=== PATIENT | female | born 1955 | race Caucasian/White ===

== ENCOUNTER 2016-11-19 21:08 | Inpatient (IN) | payer BC ==
[2016-11-19 21:08] VITALS: BMI 38.4
[2016-11-19 22:30] LABS: SQUAMOUS EPITHIAL 9 /hpf (0-5); URINE BACTERIA RARE (<OCC); URINE BILIRUBIN NEGATIVE (NEGATIVE); URINE BLOOD NEGATIVE (NEGATIVE); URINE CLARITY Hazy (Clear); URINE COLOR Yellow (YELLOW); URINE GLUCOSE (UA) NORMAL (Normal); URINE LEUKOCYTE ESTERASE 1+ Leu/uL (Negative); URINE NITRATE NEGATIVE (NEGATIVE); URINE PROTEIN NEGATIVE (NEGATIVE); URINE UROBILINOGEN NORMAL mg/dL (0.2-1.0)
[2016-11-19] MEDS ORDERED: Sodium Chloride 0.9% 1,000 ML IV ONE (23:06)
[2016-11-20 00:19] LABS: BASO # 0.1 K/uL (0.0-0.2); BASO % 0.9 % (0.0-2.0); EOS % 0.1 % (0.0-4.0); HEMOGLOBIN 13.1 g/dL (11.0-16.0); LYMPH # 2.5 K/uL (1.0-4.3); LYMPH % 33.2 % (20.0-40.0); MEAN CORPUSCULAR HEMOGLOBIN 24.7 pg (27.0-31.0); MEAN CORPUSCULAR HGB CONC 31.2 g/dL (33.0-37.0); MEAN PLATELET VOLUME 9.2 fL (7.2-11.7); MONO # 0.5 K/uL (0.0-0.8); MONO % 5.9 % (0.0-10.0); NEUT # 4.6 K/uL (1.8-7.0); NEUT % 59.9 % (50.0-75.0); RBC 5.29 Mil/uL (3.80-5.20); RED CELL DISTRIBUTION WIDTH 18.4 % (11.5-14.5); WHITE BLOOD COUNT 7.7 K/uL (4.8-10.8)
[2016-11-20 00:21] LABS: MEAN CELL VOLUME 79.3 fL (81.0-99.0)
[2016-11-20 00:29] LABS: ALT/SGPT 15 U/L (9-52); AST/SGOT 17 U/L (14-36); BLOOD UREA NITROGEN 17 mg/dL (7-17); GFR AFRICAN-AMERICAN > 60; GFR NON-AFRICAN AMERICAN > 60
[2016-11-20 00:30] LABS: CALCIUM 8.6 mg/dl (8.6-10.4); LIPASE 110 U/L (23-300)
[2016-11-20] MEDS ORDERED: Sodium Chloride 0.9% 1,000 ML ONE (00:32)
[2016-11-20] MEDS ORDERED: Morphine 4 MG/ML VIAL ONE (00:32)
--- NOTE | 2016-11-20 01:15 | C.PDOC ---
History Of Present Illness A 61 y/o F c/o crampy abdominal pain for a week. Pt was referred by Dr. Ruiz. Spoke with Dr. Ruiz at 23:00 who said "please evaluate Pt". Pt denies fever, chills, nausea, vomiting, diarrhea, vaginal bleeding, discharge, dysuria, hematuria, or any other complaints. Time Seen by Provider: 11/19/16 22:55 Chief Complaint (Nursing): Abdominal Pain History Per: Patient History/Exam Limitations: no limitations Onset/Duration Of Symptoms: Days Current Symptoms Are (Timing): Still Present Severity: Mild Location Of Pain/Discomfort: Diffuse Radiation Of Pain To:: None Quality Of Discomfort: Cramping Associated Symptoms: denies: Fever, Chills, Nausea, Vomiting Recent travel outside of the [place]: No Additional History Per: Patient Abnormal Vaginal Bleeding: No Past Medical History Reviewed: Historical Data, Nursing Documentation, Vital Signs Vital Signs: Last Vital Signs Temp 97.8 F 11/20/16 02:57 Pulse 80 11/20/16 02:57 Resp 16 11/20/16 02:57 BP 156/88 H 11/20/16 02:57 Pulse Ox 98 11/20/16 02:57 - Medical History PMH: Arthritis (CERVICAL AND LBP CHRONIC), Asthma, Diabetes, HTN, Hypercholesterolemia, Hypothyroidism, Kidney Stones Denies: Atrial Fibrillation, Cardia Arrhythmia, CHF, Chronic Kidney Disease Surgical History: Cholecystectomy - [facility] Procedures ESOPHAGOGASTRODUODENOSCOPY [EGD] W/CLOSED BIOPSY (03/31/13) Family History: States: Unknown Family Hx - Social History Hx Tobacco Use: No Hx Alcohol Use: Yes Hx Substance Use: No - Immunization History Hx Tetanus Toxoid Vaccination: No Hx Influenza Vaccination: No Hx Pneumococcal Vaccination: No Review Of Systems Except As Marked, All Systems Reviewed And Found Negative. Constitutional: Negative for: Fever, Chills Gastrointestinal: Positive for: Abdominal Pain. Negative for: Nausea, Vomiting , Diarrhea Genitourinary: Negative for: Dysuria, Hematuria, Vaginal Discharge, Vaginal Bleeding Physical Exam - Physical Exam Appears: Non-toxic, No Acute Distress Skin: Warm, Dry Head: Atraumatic, Normacephalic Eye(s): bilateral: Normal Inspection Cardiovascular: Rhythm Regular, No Murmur Respiratory: Normal Breath Sounds, No Accessory Muscle Use, No Rales, No Rhonchi , No Wheezing Gastrointestinal/Abdominal: Soft, Tenderness (vague tenderness), No Guarding, No Rebound, Other (Obese abdomen. Large pannus) Neurological/Psych: Oriented x3, Normal Speech, Normal Cognition ED Course And Treatment - Laboratory Results Result Diagrams: 11/20/16 00:15 11/20/16 00:15 Lab Interpretation: Normal (trop neg.) ECG: Interpreted By Me ECG Rhythm: Sinus Rhythm ECG Interpretation: Normal Rate From EC O2 Sat by Pulse Oximetry: 97 (RA) Pulse Ox Interpretation: Normal - Radiology CXR: Interpreted by Me CXR Interpretation: Yes: No Acute Disease - Other Rad abd x 2 X-Ray: Interpreted by Me (+FOS) Reevaluation Time: 01:13 Reassessment Condition: Improved Medical Decision Making Medical Decision Making: Impression: Plans: -EKG -XRAY abdomen -Pepcid -Morphine -IV fluids constipation and NOT diarrhea. LOW susp of colitis/C-diff and normal WBC's and colon with large stool. laxative prescribed. outpatient f/u w Dr. Ruiz 0300: pt wants to remain for inpt eval for belly pain despite reassurances, ok with Dr. Ruiz 0330: d/w Dr. Marx, ok to med/surg Obs Disposition Doctor Will See Patient In The: Hospital Counseled Patient/Family Regarding: Studies Performed, Diagnosis - Disposition Referrals: Lucille Ruiz [Primary Care Provider] - Disposition: HOSPITALIZED Disposition Time: 03:20 Condition: GOOD Additional Instructions: drink bottle of Mag Citrate (laxative) now re-evaluate your abdominal discomfort after using the bathroom 2-3 times. Follow-up with Dr. Ruiz as needed. Prescriptions: Magnesium Citrate [[facility] Magnesium Citrate] 300 ml PO ONCE PRN #1 bottle PRN Reason: Constipation Instructions: Constipation (ED) - Clinical Impression Clinical Impression: Abdominal pain - Scribe Statement The provider has reviewed the documentation as recorded by the Scribe Yue meléndez All medical record entries made by the Scribe were at my direction and personally dictated by me. I have reviewed the chart and agree that the record accurately reflects my personal performance of the history, physical exam, medical decision making, and the department course for this patient. I have also personally directed, reviewed, and agree with the discharge instructions and disposition.
[2016-11-20] MEDS ORDERED: Oxycodone/Acetaminophen 5/325 mg Tab PO STA (03:16)
--- NOTE | 2016-11-20 10:56 | RAD ---
Abdomen five views History: Abdominal pain. Comparison: None available. Findings: Mild venous congestion. Patchy left basilar increased markings. Tortuous aorta. Mild cardiomegaly. Degenerative changes in the spine and shoulders. Surgical clips in the right upper abdomen. Moderate fecal retention in the colon. No evidence of gross obstruction. Degenerative changes in the spine and hips. Impression: Moderate fecal retention in the colon.
[2016-11-20] MEDS: Levothyroxine 112 MCG TAB PO SCH (10:59)
[2016-11-20] MEDS: (Novolog) Insulin Aspart, Recombinant 100 u/ml 10 ml vial SC SCH ×3 (11:58→21:14)
[2016-11-20] MEDS ORDERED: Bisacodyl 5mg EC Tab PO ONE (13:00)
[2016-11-20] MEDS: Belladonna-Phenobarbital PO SCH ×2 (14:51→17:28)
[2016-11-20] MEDS ORDERED: Iohexol 240 (50 ml) PO ONE (16:00)
[2016-11-20] MEDS ORDERED: Iohexol 350mg/ml 100 ML ONE (16:19)
--- NOTE | 2016-11-20 18:34 | CP.PCM.CON ---
History of Present Illness - History of Present Illness History of Present Illness: DIZZINESS 4-5 HRS DENIES HEADACHE, VISUAL, BULBAR AND SENSORY MOTOR DYSFUNCTION NO SIMILAR PROBLE,M Past Patient History - Infectious Disease Hx of Infectious Diseases: None - Past Medical History & Family History Past Medical History?: Yes - Past Social History Smoking Status: Never Smoked - CARDIAC Hx Atrial Fibrillation: No Hx Cardia Arrhythmia: No Hx Congestive Heart Failure: No Hx Hypertension: Yes - PULMONARY Hx Asthma: Yes - NEUROLOGICAL Hx Neurological Disorder: No Other/Comment: AAOX3 - HEENT Hx HEENT Problems: No - RENAL Hx Chronic Kidney Disease: No Hx Kidney Stones: Yes - ENDOCRINE/METABOLIC Hx Diabetes Mellitus Type 2: Yes Hx Hypothyroidism: Yes - HEMATOLOGICAL/ONCOLOGICAL Hx Blood Disorders: No - INTEGUMENTARY Hx Dermatological Problems: No - MUSCULOSKELETAL/RHEUMATOLOGICAL Hx Arthritis: Yes (CERVICAL AND LBP CHRONIC) Hx Falls: No - GASTROINTESTINAL Hx Gastrointestinal Disorders: No Hx Diarrhea: Yes Other/Comment: "herina repair x2" - GENITOURINARY/GYNECOLOGICAL Hx Genitourinary Disorders: No - PSYCHIATRIC Hx Substance Use: No - SURGICAL HISTORY Hx Cholecystectomy: Yes Hx Hysterectomy: Yes (11 yrs ago) - ANESTHESIA Hx Anesthesia: Yes Hx Anesthesia Reactions: No Hx Malignant Hyperthermia: No Meds Home Medications: Home Medication List Medication Instructions Recorded Confirmed Type Magnesium Citrate [[facility] 300 ml PO ONCE PRN #1 bottle 11/20/16 Rx Pharmacy Magnesium Citrate] Allergies/Adverse Reactions: Allergies Allergy/AdvReac Type Severity Reaction Status Date / Time No Known Allergies Allergy Verified 03/08/16 07:43 - Medications Medications: Current Medications Amlodipine Besylate (Norvasc) 10 mg PO DAILY [facility] Last Admin: 11/20/16 10:58 Dose: 10 mg Belladonna/Phenobarbital () 1 tab PO TID [facility] Last Admin: 11/20/16 17:28 Dose: 1 tab Bisacodyl (Dulcolax) 10 mg PO ONCE ONE Stop: 11/21/16 17:01 Clonidine HCl (Catapres-Tts3 0.3 Mg/24 Hr) 1 patch TD QWK [facility] Last Admin: 11/20/16 10:58 Dose: 1 patch Gabapentin (Neurontin) 300 mg PO DAILY [facility] Last Admin: 11/20/16 10:58 Dose: 300 mg Heparin Sodium (Porcine) (Heparin) 5,000 units SC Q12 [facility] Last Admin: 11/20/16 10:59 Dose: 5,000 units Hydralazine HCl (Apresoline) 100 mg PO DAILY [facility] Last Admin: 11/20/16 10:58 Dose: 100 mg Insulin Aspart (Novolog) 0 unit SC ACHS [facility] PRN Reason: Protocol Last Admin: 11/20/16 17:29 Dose: Not Given Levothyroxine Sodium (Synthroid) 112 mcg PO DAILY@0630 [facility] Last Admin: 11/20/16 10:59 Dose: 112 mcg Metformin HCl (Glucophage Xr) 500 mg PO DAILY@0800 [facility] Nebivolol (Bystolic) 5 mg PO DAILY [facility] Last Admin: 11/20/16 10:59 Dose: 5 mg Polyethylene Glycol/Electrolytes (Golytely) 4,000 ml PO ONCE ONE Stop: 11/21/16 09:01 Physical Exam - Head Exam Head Exam: ATRAUMATIC, NORMAL INSPECTION - Eye Exam Eye Exam: Normal appearance - Respiratory Exam Respiratory Exam: NORMAL BREATHING PATTERN - Cardiovascular Exam Cardiovascular Exam: REGULAR RHYTHM - Expanded Neurological Exam Expanded Speech: Anomia, Expressive Aphasia, Fluid Speech, Garbled Speech, Reseptive Aphasia, Slurred Speech, Stutter, Total Aphasia Cranial nerves: EOM's Intact: Normal, Facial Palsey w/Forehead Movement: Normal , Facial Palsey w/o Forehead Movement: Normal, Facial Sensation: Normal, Gag Reflex: Normal, Nystagmus: Normal, Tongue Deviation: Normal Ataxia: No Cerebellar Function: Finger to Nose: Normal, Heel to Matson: Normal, Romberg: Normal Upper motor neuron: Babinski Sign: Normal Sensory exam: Lower Extremity Light Touch: Abnormal Left, Abnormal Right, Lower Extremity Pin Prick: Abnormal Left, Abnormal Right, Lower Extremity Temperature : Abnormal Left, Abnormal Right (NEUROPATHY ) Neuro motor strength exam: Left Upper Extremity: 5, Right Upper Extremity: 5, Left Lower Extremity: 5, Right Lower Extremity: 5 DTR: Achilles Tendon Left: 0, Achilles Tendon Right: 0, Bicep Left: 0, Bicep Right: 0, Brachioradialis Left: 0, Brachioradialis Right: 0, Patellar Left: 0, Patellar Right: 0, Tricep Left: 0 Results - Vital Signs Recent Vital Signs: Last Vital Signs Temp 98.4 F 11/20/16 15:10 Pulse 60 11/20/16 15:10 Resp 20 11/20/16 15:10 BP 113/64 11/20/16 15:10 Pulse Ox 96 11/20/16 15:10 - Labs Result Diagrams: 11/20/16 00:15 11/20/16 00:15 Labs: Laboratory Results - last 24 hr 11/20/16 11/20/16 11/20/16 16:44 17:06 17:06 POC Glucose (mg/dL) 138 H Alpha Fetoprotein 2.5 Carcinoembryonic Ag < 0.3 CA 19-9 Antigen 2.9 CA 125 Antigen < 5.5 Assessment & Plan (1) Vertebro-basilar artery syndrome Status: Acute (2) Vertebrobasilar insufficiency Status: Acute - Assessment and Plan (Free Text) Assessment: NO LONG TRACT SIGNS NEUROPATHY OLD PLAN MRI CAROTID PLAVIX IF MRI IS NEGATIVE MEAN TIME MECKLIZINE POLY PHARMACY AVOID NARCOTIC - Date & Time Date: 11/20/16 Time: 18:37
[2016-11-20 19:12] LABS: FREE T4 1.5 ng/dL (0.78-2.19)
--- NOTE | 2016-11-20 19:32 | CT ---
EXAM: CT Abdomen and Pelvis With Intravenous Contrast CLINICAL HISTORY: 61 years old, female; Pain; Abdominal pain; Flank; Right lower quadrant (rlq); Additional info: Change of b. Movements TECHNIQUE: Axial computed tomography images of the abdomen and pelvis with intravenous contrast. This CT exam was performed using one or more of the following dose reduction techniques: automated exposure control, adjustment of the mA and/or kV according to patient size, and/or use of iterative reconstruction technique. Coronal and sagittal reformatted images were created and reviewed. CONTRAST: 100 mL of omnipaque 350 administered intravenously. EXAM DATE/TIME: Exam ordered 11/20/2016 4:00 PM COMPARISON: No relevant prior studies available. FINDINGS: Lower thorax: Scattered areas of groundglass density are noted in the right middle lobe. Coarse reticular densities are seen in the right middle lobe in the left lower lobe suggesting discoid atelectasis or scar. ABDOMEN: Liver: A 1 cm low density lesion is noted in the anterior superior segment of the right lobe of the liver with a density measurement of 20 1H. There is mild central intrahepatic ductal dilatation. The liver measures 20 cm in craniocaudal span. Gallbladder and bile ducts: The gallbladder is absent. The common bile duct measures approximately 9 mm. Pancreas: Unremarkable. No mass. No ductal dilation. Spleen: The spleen measures 13.6 cm in craniocaudal span. Adrenals: Unremarkable. No mass. Kidneys and ureters: There is a 7 mm low density lesion arising from the lower pole left kidney with a density measurement of 7H. No hydronephrosis. Stomach and bowel: There are scattered colonic diverticula. There is an old haziness of the fat surrounding the descending colon in the region of several sigmoid colonic diverticula. No obstruction. No mucosal thickening. Appendix: The appendix is not seen as a separate structure. PELVIS: Bladder: Unremarkable. No mass. Reproductive: Unremarkable as visualized. ABDOMEN and PELVIS: Intraperitoneal space: Unremarkable. No free air. No significant fluid collection. Bones/joints: There is an apparent dextroscoliosis of the thoracolumbar spine with mild secondary degenerative changes. No acute fracture. No dislocation. Soft tissues: There is a small midline supraumbilical abdominal hernia containing fat. A second defect is noted in the lower anterior abdominal wall at the level of the rectus abdominous muscle where there is a small herniation of fat just to the right of midline. There is a small hiatal hernia Vasculature: Unremarkable. No abdominal aortic aneurysm. Lymph nodes: Unremarkable. No enlarged lymph nodes. Other findings: No inflammatory changes are seen in the right lower quadrant. IMPRESSION: 1. 2 small anterior abdominal hernias containing fat 2. Scattered colonic diverticula. Minimal hazy changes noted within the pericolonic fat at the level of the descending colon could represent a very mild case of diverticulitis. 3. Hepatosplenomegaly. 4. Left renal cyst. 5.Liver cyst. 6. Small hiatal hernia. 7. Scattered areas of groundglass density in the right middle lobe could represent pneumonitis Images were attached to this report and are available at [email or web address]
--- NOTE | 2016-11-20 23:42 | CP.PCM.HP ---
History of Present Illness - History of Present Illness History of Present Illness: 61 Y/O WITH H/O HTN AND DM, AND SHE HAS ABDOMINAL PAIN, NAUSEA, VOMITING, NO FEVER, COUGH DRY, NO CHEST PAIN, FEELS WEAK, NO CHEST PAIN, NO DIZZINESS Present on Admission - Present on Admission Any Indicators Present on Admission: No History of DVT/PE: No History of Uncontrolled Diabetes: No Urinary Catheter: No Decubitus Ulcer Present: No Review of Systems - Constitutional Constitutional: Anorexia, Chills, Weight Loss - EENT Eyes: Itchy Eyes - Breasts Breasts: As Per HPI - Respiratory Respiratory: Cough - Gastrointestinal Gastrointestinal: Abdominal Pain, Bloating, Cramping, Diarrhea, Excessive Flatus - Genitourinary Genitourinary: Other - Integumentary Integumentary: absent: Other - Neurological Neurological: absent: Abnormal Gait, Syncope - Endocrine Endocrine: absent: Increase in Ring/Shoe/Hat Size, Polyphagia Past Patient History - Infectious Disease Hx of Infectious Diseases: None - Past Medical History & Family History Past Medical History?: Yes - Past Social History Smoking Status: Never Smoked - CARDIAC Hx Atrial Fibrillation: No Hx Cardia Arrhythmia: No Hx Congestive Heart Failure: No Hx Hypertension: Yes - PULMONARY Hx Asthma: Yes - NEUROLOGICAL Hx Neurological Disorder: No Other/Comment: AAOX3 - HEENT Hx HEENT Problems: No - RENAL Hx Chronic Kidney Disease: No Hx Kidney Stones: Yes - ENDOCRINE/METABOLIC Hx Diabetes Mellitus Type 2: Yes Hx Hypothyroidism: Yes - HEMATOLOGICAL/ONCOLOGICAL Hx Blood Disorders: No - INTEGUMENTARY Hx Dermatological Problems: No - MUSCULOSKELETAL/RHEUMATOLOGICAL Hx Arthritis: Yes (CERVICAL AND LBP CHRONIC) Hx Falls: No - GASTROINTESTINAL Hx Gastrointestinal Disorders: No Hx Diarrhea: Yes Other/Comment: "herina repair x2" - GENITOURINARY/GYNECOLOGICAL Hx Genitourinary Disorders: No - PSYCHIATRIC Hx Substance Use: No - SURGICAL HISTORY Hx Cholecystectomy: Yes Hx Hysterectomy: Yes (11 yrs ago) - ANESTHESIA Hx Anesthesia: Yes Hx Anesthesia Reactions: No Hx Malignant Hyperthermia: No Meds Home Medications: Home Medication List Medication Instructions Recorded Confirmed Type Magnesium Citrate [[facility] 300 ml PO ONCE PRN #1 bottle 11/20/16 Rx Pharmacy Magnesium Citrate] Allergies/Adverse Reactions: Allergies Allergy/AdvReac Type Severity Reaction Status Date / Time No Known Allergies Allergy Verified 03/08/16 07:43 Physical Exam - Constitutional Appears: Non-toxic, No Acute Distress - Head Exam Head Exam: ATRAUMATIC, NORMAL INSPECTION, NORMOCEPHALIC - Eye Exam Eye Exam: EOMI, Normal appearance, PERRL Pupil Exam: NORMAL ACCOMODATION - Cardiovascular Exam Cardiovascular Exam: REGULAR RHYTHM, +S1, +S2 - GI/Abdominal Exam GI & Abdominal Exam: Distended, Hyperactive Bowel Sounds - Extremities Exam Extremities exam: Positive for: normal inspection - Back Exam Back exam: NORMAL INSPECTION - Neurological Exam Neurological exam: CN II-XII Intact, Normal Gait, Oriented x3, Reflexes Normal - Skin Skin Exam: Dry, Intact, Normal Color, Warm Results - Vital Signs Recent Vital Signs: Last Vital Signs Temp 98.4 F 11/20/16 15:10 Pulse 60 11/20/16 15:10 Resp 20 11/20/16 15:10 BP 113/64 11/20/16 15:10 Pulse Ox 96 11/20/16 15:10 - Labs Result Diagrams: 11/20/16 00:15 11/20/16 00:15 Labs: Laboratory Results - last 24 hr 11/20/16 11/20/16 11/20/16 16:44 17:06 17:06 POC Glucose (mg/dL) 138 H Hemoglobin A1c Alpha Fetoprotein 2.5 Carcinoembryonic Ag < 0.3 CA 19-9 Antigen 2.9 CA 125 Antigen < 5.5 Vitamin B12 Free T4 TSH 3rd Generation 11/20/16 11/20/16 11/20/16 18:41 18:44 18:44 POC Glucose (mg/dL) Hemoglobin A1c 6.0 Alpha Fetoprotein Carcinoembryonic Ag CA 19-9 Antigen CA 125 Antigen Vitamin B12 299 Free T4 1.50 TSH 3rd Generation 1.96 11/20/16 21:18 POC Glucose (mg/dL) 133 H Hemoglobin A1c Alpha Fetoprotein Carcinoembryonic Ag CA 19-9 Antigen CA 125 Antigen Vitamin B12 Free T4 TSH 3rd Generation Assessment & Plan (1) Dehydration Status: Acute (2) Diverticulitis Status: Acute (3) Diabetes Status: Chronic Priority: Medium (4) Hypertension Status: Chronic Priority: Medium
[2016-11-21] MEDS: Levothyroxine 112 MCG TAB PO SCH (05:30)
[2016-11-21] MEDS: (Novolog) Insulin Aspart, Recombinant 100 u/ml 10 ml vial SC SCH ×4 (07:40→21:57)
[2016-11-21] MEDS ORDERED: Peg-Electrolyte Oral Soln 4L (Golytely) PO ONE (09:00)
[2016-11-21] MEDS: Belladonna-Phenobarbital PO SCH ×3 (09:15→17:34)
[2016-11-21] MEDS ORDERED: Azithromycin 500 MG in Sodium Chloride 0.9% 250 ML IVPB STA (12:40)
[2016-11-21] MEDS ORDERED: Bisacodyl 5mg EC Tab PO ONE (17:00)
--- NOTE | 2016-11-21 17:34 | CT ---
PROCEDURE: CT chest HISTORY: mass COMPARISON: Correlation made with chest radiograph dated 11/19/2016 comparison also made with CT scan of the abdomen and pelvis 11/20/2016 which partially image the lung bases. TECHNIQUE: Contiguous axial images were obtained through the chest without intravenous contrast enhancement. Sagittal and coronal reconstructions were performed. Radiation dose (DLP): 540.48 mGy-cm. This CT exam was performed using one or more of the following dose reduction techniques: Automated exposure control, adjustment of the mA and/or kV according to patient size, and/or use of iterative reconstruction technique. FINDINGS: LUNGS: Lung moore are free of focal consolidation however there appears to be some mild atelectasis and or scarring changes in both lung bases including the lingular and middle lobe regions. Mild fibrosis/scarring changes seen in the medial aspect left upper lobe bordering the pleural surface. A follow-up CT scan in 3-6 months could be performed to assess the stability of this somewhat linear/elliptical shaped scarMild venous congestive changes seen on prior chest radiograph less well seen on this exam. There are no obvious parenchymal masses or nodules. . MEDIASTINUM: Heart size is within range of normal. No significant pericardial effusion. The ascending thoracic aorta exhibits fusiform dilatation measuring 3.93 cm in greatest dimension. Ascending and descending thoracic aorta measures approximately 2.65 cm. Pulmonary trunk measures approximately 2.8 cm. No significant mediastinal adenopathy. Evaluation for hilar adenopathy is limited due to the lack of circulating intravenous contrast material. Central airways are midline and patent. No endoluminal lesions seen within the trachea or mainstem bronchi. There is a small hiatal hernia. Slight wall thickening of the distal esophagus could be due to protrusion gastric mucosa. Possibility of esophagitis not excluded. PLEURA: No pleural fluid. No pneumothorax. BONES: Minor multilevel degenerative spondylosis of the thoracic spine. No acute compression fractures no retropulsed fragments. There are no suspicious lytic or blastic lesions identified. UPPER ABDOMEN: Re- demonstrated is a small of nonspecific low-attenuation focus within the superior aspect right lobe liver unchanged from prior exam. This probably represents a small cyst. Please refer to CT scan of the abdomen pelvis for additional findings of hepatosplenomegaly. OTHER FINDINGS: None. IMPRESSION: Minor atelectasis and or scarring both lung bases including the middle lobe and lingular regions. . There are mild fibrosis/scarring changes seen in the medial aspect left upper lobe bordering the pleural surface. . A follow-up CT scan in 3-6 months could be performed to assess the stability of this somewhat linear/elliptical shaped scar. No acute infiltrates or effusions. No obvious parenchymal on lung masses. Mild venous congestion less well seen on this study compared to plain film radiographs of the chest. Mild fusiform dilatation of the ascending thoracic aorta See above discussion for additional incidental findings. Please refer to CT scan abdomen pelvis for additional details regarding abnormal findings of the liver and spleen.
--- NOTE | 2016-11-21 21:47 | CP.PCM.PN ---
Subjective - Date & Time of Evaluation Date of Evaluation: 11/21/16 Time of Evaluation: 20:00 - Subjective Subjective: Pt seen & evalauted, c/o cough, abdominal pain, is on antibiotics per GI, decreased N/V, diarrhea Objective - Vital Signs/Intake and Output Vital Signs (last 24 hours): Temp Pulse Resp BP Pulse Ox 98.1 F 60 20 134/68 98 11/21/16 15:30 11/21/16 15:30 11/21/16 15:30 11/21/16 15:30 11/21/16 15:30 Intake and Output: 11/21/16 11/22/16 18:59 06:59 Intake Total 850 Balance 850 - Medications Medications: Current Medications Amlodipine Besylate (Norvasc) 10 mg PO DAILY [facility] Last Admin: 11/21/16 09:13 Dose: Not Given Belladonna/Phenobarbital () 1 tab PO TID [facility] Last Admin: 11/21/16 17:34 Dose: 1 tab Clonidine HCl (Catapres-Tts3 0.3 Mg/24 Hr) 1 patch TD QWK [facility] Last Admin: 11/20/16 10:58 Dose: 1 patch Gabapentin (Neurontin) 300 mg PO DAILY [facility] Last Admin: 11/21/16 09:15 Dose: 300 mg Heparin Sodium (Porcine) (Heparin) 5,000 units SC Q12 [facility] Last Admin: 11/21/16 21:23 Dose: 5,000 units Hydralazine HCl (Apresoline) 100 mg PO DAILY [facility] Last Admin: 11/21/16 09:12 Dose: Not Given Azithromycin 500 mg/ Sodium (Chloride) 250 mls @ 250 mls/hr IVPB DAILY [facility] Ceftriaxone Sodium 1 gm/ (Sodium Chloride) 100 mls @ 100 mls/hr IVPB DAILY [facility] Last Admin: 11/21/16 15:04 Dose: 100 mls/hr Insulin Aspart (Novolog) 0 unit SC ACHS [facility] PRN Reason: Protocol Last Admin: 11/21/16 17:35 Dose: Not Given Levothyroxine Sodium (Synthroid) 112 mcg PO DAILY@0630 [facility] Last Admin: 11/21/16 05:30 Dose: 112 mcg Metformin HCl (Glucophage Xr) 500 mg PO DAILY@0800 [facility] Last Admin: 11/21/16 09:15 Dose: 500 mg Nebivolol (Bystolic) 5 mg PO DAILY [facility] Last Admin: 11/21/16 09:12 Dose: Not Given - Constitutional Appears: No Acute Distress - Head Exam Head Exam: ATRAUMATIC, NORMAL INSPECTION, NORMOCEPHALIC - Eye Exam Eye Exam: EOMI, Normal appearance, PERRL Pupil Exam: NORMAL ACCOMODATION, PERRL - Respiratory Exam Respiratory Exam: Decreased Breath Sounds, Rales, Rhonchi - Cardiovascular Exam Cardiovascular Exam: REGULAR RHYTHM, +S1, +S2. absent: Murmur - GI/Abdominal Exam GI & Abdominal Exam: Soft, Normal Bowel Sounds. absent: Tenderness Assessment and Plan (1) Dehydration Status: Acute (2) Diverticulitis Status: Acute (3) Diabetes Status: Chronic (4) Hypertension Status: Chronic (5) Atelectasis Status: Acute (6) Colitis Status: Acute
[2016-11-22] MEDS: Levothyroxine 112 MCG TAB PO SCH (08:15)
[2016-11-22] MEDS: (Novolog) Insulin Aspart, Recombinant 100 u/ml 10 ml vial SC SCH ×2 (08:15→13:32)
[2016-11-22 08:54] LABS: INR 1.1; PROTHROMBIN TIME 12.5 SECONDS (9.7-12.2)
[2016-11-22] MEDS ORDERED: Azithromycin 500 MG in Sodium Chloride 0.9% 250 ML IVPB SCH (10:00)
[2016-11-22] MEDS ORDERED: Propofol 10 mg/ml Inj (20 ML) ONE ×2 (10:58→11:32)
[2016-11-22] MEDS ORDERED: Phenylephrine 10 mg/ml Inj ONE (10:58)
[2016-11-22] MEDS: Belladonna-Phenobarbital PO SCH ×2 (11:23→14:32)
[2016-11-22] MEDS ORDERED: Glucagon Recombinant 1 mg Inj ONE (11:30)
[2016-11-22] MEDS ORDERED: metroNIDAZOLE IV 500 mg/100 ml 500 MG/100 ML BAG IVPB STA (11:41)
[2016-11-22] MEDS ORDERED: Belladonna-Phenobarbital PO STA (11:42)
[2016-11-22 12:02] VITALS: O2SAT 98
[2016-11-22 14:26] VITALS: BP 149/83; PULSE 55; RESP 20; TEMP 98
--- NOTE | 2016-11-22 14:44 | CP.PCM.PN ---
Subjective - Date & Time of Evaluation Date of Evaluation: 11/22/16 Time of Evaluation: 14:30 - Subjective Subjective: Pt seen an dexamined today after EGD/colonoscopy denies any dizziness, abdominal pain, N/V/D, tolerating diet , states wish to go home S/P - EGD , and colonoscopy ( see full report for details) Objective - Vital Signs/Intake and Output Vital Signs (last 24 hours): Temp Pulse Resp BP Pulse Ox 98 F 55 L 20 149/83 98 11/22/16 14:26 11/22/16 14:26 11/22/16 14:26 11/22/16 14:26 11/22/16 14:26 Intake and Output: 11/22/16 11/22/16 06:59 18:59 Intake Total 240 300 Balance 240 300 - Medications Medications: Current Medications Amlodipine Besylate (Norvasc) 10 mg PO DAILY [facility] Last Admin: 11/22/16 11:23 Dose: Not Given Belladonna/Phenobarbital () 1 tab PO TID [facility] Last Admin: 11/22/16 14:32 Dose: 1 tab Clonidine HCl (Catapres-Tts3 0.3 Mg/24 Hr) 1 patch TD QWK [facility] Last Admin: 11/20/16 10:58 Dose: 1 patch Gabapentin (Neurontin) 300 mg PO DAILY [facility] Last Admin: 11/22/16 11:23 Dose: Not Given Heparin Sodium (Porcine) (Heparin) 5,000 units SC Q12 [facility] Last Admin: 11/22/16 11:23 Dose: Not Given Hydralazine HCl (Apresoline) 100 mg PO DAILY [facility] Last Admin: 11/22/16 11:22 Dose: Not Given Insulin Aspart (Novolog) 0 unit SC ACHS [facility] PRN Reason: Protocol Last Admin: 11/22/16 13:32 Dose: Not Given Levothyroxine Sodium (Synthroid) 112 mcg PO DAILY@0630 [facility] Last Admin: 11/22/16 08:15 Dose: Not Given Metformin HCl (Glucophage Xr) 500 mg PO DAILY@0800 [facility] Last Admin: 11/22/16 08:15 Dose: Not Given - Labs Labs: PT 12.5 SECONDS (9.7-12.2) H 11/22/16 08:46 INR 1.1 11/22/16 08:46 Assessment and Plan - Assessment and Plan (Free Text) Assessment: 61 yr old female admitted for abdominal pain s/p EGD/ colonoscopy Dr. Arredondo cleared pateint for discharge home today Pt refused MRI , Dr. Almeida cleared patient for discharge home today and f/u out patient in his office D/W Dr. Marx, cleared for discharge home today and f/u with PMD in 1 week Discharge instructions discussed with patient and son at bed side , who understands and agrees with plan Pt instructed to returns to ED if symptoms returns or and any other concerning symptoms
--- NOTE | 2016-11-22 21:35 | CP.PCM.DIS ---
Provider - Provider Date of Admission: 11/20/16 15:10 Attending physician: Carlton Marx MD Primary care physician: Lucille Arredondo MD Time Spent in preparation of Discharge (in minutes): 45 Diagnosis - Discharge Diagnosis (1) Dehydration Status: Acute (2) Diverticulitis Status: Acute (3) Diabetes Status: Chronic Priority: Medium (4) Hypertension Status: Chronic Priority: Medium Hospital Course - Lab Results Lab Results: Most Recent Lab Values WBC 7.7 K/uL (4.8-10.8) 11/20/16 00:15 RBC 5.29 Mil/uL (3.80-5.20) H 11/20/16 00:15 Hgb 13.1 g/dL (11.0-16.0) 11/20/16 00:15 Hct 41.9 % (34.0-47.0) 11/20/16 00:15 MCV 79.3 fL (81.0-99.0) L D 11/20/16 00:15 MCH 24.7 pg (27.0-31.0) L 11/20/16 00:15 MCHC 31.2 g/dL (33.0-37.0) L 11/20/16 00:15 RDW 18.4 % (11.5-14.5) H 11/20/16 00:15 Plt Count 185 K/uL (130-400) 11/20/16 00:15 MPV 9.2 fL (7.2-11.7) 11/20/16 00:15 Neut % (Auto) 59.9 % (50.0-75.0) 11/20/16 00:15 Lymph % (Auto) 33.2 % (20.0-40.0) 11/20/16 00:15 [place] % (Auto) 5.9 % (0.0-10.0) 11/20/16 00:15 Eos % (Auto) 0.1 % (0.0-4.0) 11/20/16 00:15 Baso % (Auto) 0.9 % (0.0-2.0) 11/20/16 00:15 Neut # 4.6 K/uL (1.8-7.0) 11/20/16 00:15 Lymph # 2.5 K/uL (1.0-4.3) 11/20/16 00:15 Sumner # 0.5 K/uL (0.0-0.8) 11/20/16 00:15 Eos # 0.0 K/uL (0.0-0.7) 11/20/16 00:15 Baso # 0.1 K/uL (0.0-0.2) 11/20/16 00:15 ESR 16 mm/hr (0-20) 11/20/16 13:40 PT 12.5 SECONDS (9.7-12.2) H 11/22/16 08:46 INR 1.1 11/22/16 08:46 Sodium 135 mmol/L (132-148) 11/20/16 00:15 Potassium 3.9 mmol/L (3.6-5.2) 11/20/16 00:15 Chloride 99 mmol/L (98-107) 11/20/16 00:15 Carbon Dioxide 26 mmol/L (22-30) 11/20/16 00:15 Anion Gap 15 (10-20) 11/20/16 00:15 BUN 17 mg/dL (7-17) 11/20/16 00:15 Creatinine 0.7 MG/DL (0.7-1.2) 11/20/16 00:15 Est GFR ( Amer) > 60 11/20/16 00:15 Est GFR (Non-Af Amer) > 60 11/20/16 00:15 POC Glucose (mg/dL) 102 mg/dL (65-110) 11/22/16 06:18 Random Glucose 89 mg/dL (65-105) 11/20/16 00:15 Hemoglobin A1c 6.0 % (4.2-6.5) 11/20/16 18:41 Calcium 8.6 mg/dl (8.6-10.4) 11/20/16 00:15 Total Bilirubin 0.6 mg/dL (0.2-1.3) 11/20/16 00:15 AST 17 U/L (14-36) 11/20/16 00:15 ALT 15 U/L (9-52) 11/20/16 00:15 Alkaline Phosphatase 61 U/L (38-126) 11/20/16 00:15 Troponin I < 0.0120 ng/mL (0.00-0.120) 11/20/16 00:15 Total Protein 7.8 g/dL (6.3-8.3) 11/20/16 00:15 Albumin 4.0 g/dL (3.5-5.0) 11/20/16 00:15 Globulin 3.8 gm/dL (2.2-3.9) 11/20/16 00:15 Albumin/Globulin Ratio 1.0 (1.0-2.1) 11/20/16 00:15 Lipase 110 U/L (23-300) 11/20/16 00:15 Alpha Fetoprotein 2.5 ng/mL (0.0-7.5) 11/20/16 17:06 Carcinoembryonic Ag < 0.3 ng/mL (0-3.0) 11/20/16 17:06 CA 19-9 Antigen 2.9 U/mL (0-37) 11/20/16 17:06 CA 125 Antigen < 5.5 U/mL (0-35) 11/20/16 17:06 Vitamin B12 299 pg/mL (239-931) 11/20/16 18:44 Free T4 1.50 ng/dL (0.78-2.19) 11/20/16 18:44 TSH 3rd Generation 1.96 mIU/L (0.46-4.68) 11/20/16 18:44 Urine Color Yellow (YELLOW) 11/19/16 22:25 Urine Clarity Hazy (Clear) 11/19/16 22:25 Urine pH 7.0 (5.0-8.0) 11/19/16 22:25 Ur Specific [place] 1.020 (1.003-1.030) 11/19/16 22:25 Urine Protein Negative mg/dL (NEGATIVE) 11/19/16 22:25 Urine Glucose (UA) Normal mg/dL (Normal) 11/19/16 22:25 Urine Ketones Negative mg/dL (NEGATIVE) 11/19/16 22:25 Urine Blood Negative (NEGATIVE) 11/19/16 22:25 Urine Nitrate Negative (NEGATIVE) 11/19/16 22:25 Urine Bilirubin Negative (NEGATIVE) 11/19/16 22:25 Urine Urobilinogen Normal mg/dL (0.2-1.0) 11/19/16 22:25 Ur Leukocyte Esterase 1+ Anabell/uL (Negative) H 11/19/16 22:25 Urine WBC (Auto) 8 /hpf (0-5) H 11/19/16 22:25 Urine RBC (Auto) 3 /hpf (0-3) 11/19/16 22:25 Ur Squamous Epith Cells 9 /hpf (0-5) H 11/19/16 22:25 Urine Bacteria Rare (<OCC) 11/19/16 22:25 C. difficile Ag & Toxin Negative (NEGATIVE) 11/20/16 15:05 - Hospital Course Hospital Course: 61 yr old female admitted for abdominal pain s/p EGD/ colonoscopy Dr. Arredondo cleared pateint for discharge home today Pt refused MRI , Dr. Almeida cleared patient for discharge home today and f/u out patient in his office Pt seen and examined today, is stable and cleared for discharge home today and f/u with me in 1 week Discharge instructions discussed with patient and son at bed side , who understands and agrees with plan Pt instructed to returns to ED if symptoms returns or and any other concerning symptoms Discharge Exam - Head Exam Head Exam: ATRAUMATIC, NORMAL INSPECTION, NORMOCEPHALIC - Eye Exam Eye Exam: EOMI, Normal appearance, PERRL Pupil Exam: NORMAL ACCOMODATION, PERRL - Respiratory Exam Respiratory Exam: Clear to PA & Lateral, NORMAL BREATHING PATTERN - Cardiovascular Exam Cardiovascular Exam: REGULAR RHYTHM, +S1, +S2 - GI/Abdominal Exam GI & Abdominal Exam: Normal Bowel Sounds - Rectal Exam Rectal Exam: Deferred Discharge Plan - Discharge Medications Prescriptions: Dicyclomine [Bentyl] 20 mg PO BIDAC #14 tab Magnesium Citrate [[facility] Magnesium Citrate] 300 ml PO ONCE PRN #1 bottle PRN Reason: Constipation Pantoprazole [Protonix] 40 mg PO DAILY #15 ect - Follow Up Plan Condition: GOOD Disposition: HOME/ ROUTINE Instructions: Constipation (ED), Acute Abdominal Pain (DC) Additional Instructions: f/u with Dr. Moreno office in 1 week f/u with Samia Arredondo office in 4 weeks f/u with Dr. Almeida office in 1-2 weeks - call for appintmen t continue medication as per Med. REc. Referrals: Lucille Arredondo [Primary Care Provider] - Khanh Almeida MD [Staff Provider] -
--- NOTE | 2016-11-23 13:28 | VASCLAB ---
PROCEDURE: HISTORY: STENOSIS COMPARISON: None available. TECHNIQUE: Grayscale and duplex Doppler evaluation of the cervical carotid and vertebral arteries were performed. The common carotid, carotid bifurcations and cervical Internal Carotid Artery (ICA) and proximal External Carotid Artery (ECA) were evaluated. The vertebral arteries were evaluated for gross patency and flow direction. Report prepared by Eric Jacob, BS, RVT FINDINGS: RIGHT CAROTID ARTERIES: 1. Common Carotid Artery: No significant focal plaque formation of the right common carotid artery. Maximum Peak Systolic velocity: 58 cm/sec: End-diastolic velocity 13 cm/sec. 2. Carotid Bifurcation: plaque formation. Maximum Peak Systolic velocity: 50 cm/sec: End-diastolic velocity 12 cm/sec. 3. Internal Carotid Artery: Plaque description: 3.1. Proximal Segment: Peak systolic velocity 62 cm/sec: End-diastolic velocity 15 cm/sec - % stenosis 0-15% 3.2. Middle Segment: Peak systolic velocity 88 cm/sec: End-diastolic velocity 23 cm/sec - % stenosis 0-15% 3.3. Distal Segment: Peak systolic velocity 121 cm/sec: End-diastolic velocity 35 cm/sec - % stenosis 0-15% 4. External Carotid Artery: No significant focal plaque formation. Peak systolic velocity 88 cm/sec 5. ICA/CCA Ratio: 2.1 LEFT CAROTID ARTERIES: 1. Common Carotid Artery: No significant focal plaque formation of the left common carotid artery. Maximum Peak Systolic velocity: 71 cm/sec: End-diastolic velocity 14 cm/sec. 2. Carotid Bifurcation: plaque formation. Maximum Peak Systolic velocity: 103 cm/sec: End-diastolic velocity 13 cm/sec. 3. Internal Carotid Artery: Plaque description: 3.1. Proximal Segment: Peak systolic velocity 88 cm/sec: End-diastolic velocity 27 cm/sec - % stenosis 0-15% 3.2. Middle Segment: Peak systolic velocity 109 cm/sec: End-diastolic velocity 37 cm/sec - % stenosis 0-15% 3.3. Distal Segment: Peak systolic velocity 93 cm/sec: End-diastolic velocity 28 cm/sec - % stenosis 0-15% 4. External Carotid Artery: No significant focal plaque formation. Peak systolic velocity 103 cm/sec 5. ICA/CCA Ratio: 1.5 VERTEBRAL ARTERIES: 1. Right Vertebral Artery: The right vertebral artery flow direction is antegrade. 2. Left Vertebral Artery: The left vertebral artery flow direction is antegrade. OTHER FINDINGS: 1. Right Brachial Blood pressure: 160 mmHg. 2. Left Brachial Blood pressure: 160 mmHg. IMPRESSION: RIGHT: Duplex scan does not suggest hemodynamically significant stenosis of the right extracranial carotid arteries. LEFT: Duplex scan does not suggest hemodynamically significant stenosis of the left extracranial carotid arteries.
--- NOTE | 2016-11-25 19:17 | CARD ---
APPROVED REPORT EKG Measurement Heart [id number] <Conclusion> Normal sinus rhythm Normal ECG
--- NOTE | 2016-12-04 17:38 | CON ---
DATE OF CONSULTATION: 11/19/2016 HISTORY OF PRESENT ILLNESS: I was called for the GI consultation by the admitting medical team as well as ER staff. The patient is seen and fully examined on 11/19/2016 as requested by the admitting medical team. The entire chart is reviewed including but not limited to the most recent lab and radiology study results, current and previous medication list, current and previous medical events, allergies to medication list, as well as all the available current and previous medical record is discussed at length with admitting medical staff at the time of my consultation on 11/19/2016. A handwritten short consultation sheet left in the chart due to a malfunction of the dictation system for which this note is dictated now. This is a 61-year-old female, known case for me from previous office visits due to abdominal pain, possible abdominal distention, change of bowel movement habit recently with nausea and dyspepsia and periods of vomiting; however, the patient reported period of severe constipation with evidence of fecal impaction clinically. An abdominal pain was described as diffuse. PAST MEDICAL HISTORY: Including, but not limited to; 1. Bronchial asthma. 2. Diabetes mellitus. 3. Hypertension. 4. Osteoarthritis. 5. Renal stone. 6. Hyperlipidemia. 7. Hypothyroidism. 8. Peptic ulcer disease. 9. Status post cholecystectomy. FAMILY HISTORY: Unknown. SOCIAL HISTORY: Positive for alcohol intake on and off, but no cigarette smoking. After being admitted to the hospital, the patient was found to have normal CBC initially with normal SMA-7. ALLERGIES TO MEDICATIONS: UNCLEAR. CURRENT MEDICATION: Mediation lists were reviewed. PHYSICAL EXAMINATION: GENERAL: A 61-year-old female, complaining of severe diffuse abdominal pain with dyspepsia and nausea on and off, unable to eat for the last several days due to her abdominal pain and constipation. VITAL SIGNS: The patient is afebrile with pulse of 86, respiratory rate 18 to 20, blood pressure 150/86. HEENT: Show dry oral mucous membrane, nonicteric sclerae. LYMPH NODE: No lymphadenitis or lymphadenopathy. LUNGS: Reveal scattered crepitation, decreased air entry at bases. HEART: Positive S1 and S2. ABDOMEN: Soft with [id number] distention and hypoactive bowel sounds. No masses or organomegaly. No rebound tenderness or guarding. RECTAL: The patient refused. EXTREMITIES: Without significant edema, clubbing or cyanosis. NEUROLOGIC: No neurological deficits, sensory or motor reported. IMPRESSION: 1. Exacerbation of peptic ulcer disease. 2. Severe change in bowel movement habit with fecal impaction, to rule out occult gastrointestinal malignancy. 3. Multiple past medical history including but not limited to bronchial asthma, diabetes mellitus, osteoarthritis, hypertension, hyperlipidemia, hypothyroidism and renal stones. 4. It has to be mentioned that the patient's hypothyroidism could be a major factor for her constipation versus occult lower gastrointestinal tract malignancy. SUGGESTION: 1. I agree with your plan. 2. Fix abdomen and pelvic CAT scan. 3. Cancer markers. 4. Proton pump inhibitors. 5. Rehydration. 6. Endoscopic evaluation of the GI tract once the patient is more stable clinically and after that, be back with preparation. 7. Cancer markers including CEA 125 and CA 19-9. 8. Guaiac-positive stool every day x3. 9. Citrate of magnesia. 10. Further recommendation to follow. Thank you for letting me participate in your patient's care management. Lucille Portillo MD CC:
== END 2016-11-22 16:30 | disposition home or self-care (01) | DRG 392 ==
LOC: C.ER 21:08 → SUPCPDRO 21:08 → C.9E 11-20 03:17 → C.3T 11-20 04:32 → OBSVTOIN 11-20 15:10
PROVIDERS: ADMIT Internal Medicine; ATTEND Internal Medicine
PROC: 0DB68ZX Excision of Stomach, Via Natural or Artificial Opening Endoscopic, Diagnostic (ICD-10-PCS; principal; 2016-11-22 11:30)
PROC: 0DBM8ZX Excision of Descending Colon, Via Natural or Artificial Opening Endoscopic, Diagnostic (ICD-10-PCS; 2016-11-22 11:30)
DX: K57.92 Diverticulitis of intestine, part unspecified, without perforation or abscess without bleeding (principal); E86.0 Dehydration; K29.00 Acute gastritis without bleeding; K64.8 Other hemorrhoids; K58.9 Irritable bowel syndrome, unspecified; K21.0 Gastro-esophageal reflux disease with esophagitis; K56.41 Fecal impaction; K44.9 Diaphragmatic hernia without obstruction or gangrene; E11.40 Type 2 diabetes mellitus with diabetic neuropathy, unspecified; J98.11 Atelectasis; E03.9 Hypothyroidism, unspecified; E11.9 Type 2 diabetes mellitus without complications; K64.4 Residual hemorrhoidal skin tags; I10 Essential (primary) hypertension; J45.909 Unspecified asthma, uncomplicated; E78.00 Pure hypercholesterolemia, unspecified; Z53.20 Procedure and treatment not carried out because of patient's decision for unspecified reasons; Z79.4 Long term (current) use of insulin; Z87.442 Personal history of urinary calculi; Z90.49 Acquired absence of other specified parts of digestive tract; Z90.710 Acquired absence of both cervix and uterus

== ENCOUNTER 2017-12-18 16:02 | Emergency (ER) | payer BC ==
[2017-12-18 16:02] VITALS: BMI 38.4
[2017-12-18 16:18] VITALS: O2SAT 96
--- NOTE | 2017-12-18 16:38 | C.PDOC ---
History Of Present Illness <Giovanna Daniels - Last Filed: 12/18/17 17:17> <Jerrica Montanez - Last Filed: 12/26/17 09:54> 62 year old female with past medical history of HTN and Hypothyroidism presents to the ER for right great toe injury. Patient states she was taking out the garbage when she pulled it towards her and it hit her right great toe. She states her pain is 7/10 without radiation. Patient denies numbness or tingling. (Giovanna Daniels) History Per: Patient History/Exam Limitations: no limitations Pain Scale Rating Of: 7 <Giovanna Daniels - Last Filed: 12/18/17 17:17> <Jerrica Montanez - Last Filed: 12/26/17 09:54> Time Seen by Provider: 12/18/17 16:31 Chief Complaint (Nursing): Lower Extremity Problem/Injury Past Medical History - Medical History PMH: Arthritis (CERVICAL AND LBP CHRONIC), Asthma, Diabetes, HTN, Hypercholesterolemia, Hypothyroidism, Kidney Stones Denies: Atrial Fibrillation, Cardia Arrhythmia, CHF, Chronic Kidney Disease Surgical History: Cholecystectomy Family History: States: Unknown Family Hx - Social History Hx Tobacco Use: No Hx Alcohol Use: No Hx Substance Use: No - Immunization History Hx Tetanus Toxoid Vaccination: Yes (within one year ) Hx Influenza Vaccination: No Hx Pneumococcal Vaccination: No <Giovanna Daniels - Last Filed: 12/18/17 17:17> Vital Signs: Last Vital Signs Temp 98 F 12/18/17 17:20 Pulse 71 12/18/17 17:20 Resp 16 12/18/17 17:20 BP 169/91 H 12/18/17 17:20 Pulse Ox 96 12/18/17 17:20 - [facility] Procedures ESOPHAGOGASTRODUODENOSCOPY [EGD] W/CLOSED BIOPSY (03/31/13) EXCISION OF DESCENDING COLON, ENDO, DIAGN (11/20/16) EXCISION OF STOMACH, ENDO, DIAGN (11/20/16) Review Of Systems Constitutional: Negative for: Fever, Chills Musculoskeletal: Positive for: Other (right great toe pain ) Skin: Positive for: Other (right great toe nail avulsion ) <Giovanna Daniels - Last Filed: 12/18/17 17:17> Physical Exam - Physical Exam Appears: Well Head: Atraumatic, Normacephalic Eye(s): bilateral: Normal Inspection, PERRL, EOMI Cardiovascular: Rhythm Regular Respiratory: Normal Breath Sounds Extremity: Normal ROM, Tenderness, Other (right great toe nail avulsion; tenderness to right great toe) <Giovanna Daniels - Last Filed: 12/18/17 17:17> ED Course And Treatment O2 Sat by Pulse Oximetry: 96 <Giovanna Daniels - Last Filed: 12/18/17 17:17> Medical Decision Making <Giovanna Daniels - Last Filed: 12/18/17 17:17> <Jerrica Montanez - Last Filed: 12/26/17 09:54> Medical Decision Making: Xray of right great toe: negative for fracture Right great toenail was washed, bacitracin was placed and right great toe was wrapped. Patient was counselled to keep the area clean and dry. Discussed with patient the toenail may eventually fall. Counselled patient to follow up with PMD within 1 week. (Giovanna Daniels) Disposition Discussed With Dr.: Jerrica Montanez Doctor Will See Patient In The: ED <Giovanna Daniels - Last Filed: 12/18/17 17:17> - Disposition Disposition Time: 17:12 <Jerrica Montanez - Last Filed: 12/26/17 09:54> - Disposition Disposition: HOME/ ROUTINE Condition: GOOD Additional Instructions: Patient to follow up with primary care physician in 1 week. Return to ED if condition worsens Prescriptions: Ibuprofen [Motrin] 600 mg PO Q6H PRN #30 tab PRN Reason: Pain, Severe (8-10) Instructions: Toe Injury, Nail Avulsion Forms: [email or web address] ([place]ian) - Clinical Impression Clinical Impression: Nail avulsion, toe - PA / PROGRAM MANAGEMENT INTERN / Resident Statement MD/DO has reviewed & agrees with the documentation as recorded. MD/DO has examined the patient and agrees with the treatment plan. <Giovanna Daniels - Last Filed: 12/18/17 17:17>
[2017-12-18] MEDS ORDERED: Oxycodone/Acetaminophen 5/325 mg Tab PO ONE (16:39)
[2017-12-18] MEDS ORDERED: Bacitracin Ointment 30 GM TUBE TOP ONE (16:40)
[2017-12-18] MEDS ORDERED: Bacitracin 500 Units/gm Oint Foilpak UD ONE (16:45)
[2017-12-18] MEDS ORDERED: Oxycodone/Acetaminophen 5/325 mg Tab ONE (16:46)
[2017-12-18 17:28] VITALS: BP 169/91; PULSE 71; RESP 16; TEMP 98
--- NOTE | 2017-12-19 09:41 | RAD ---
PROCEDURE: Radiographs of the right great toe. TECHNIQUE:: AP radiograph of the right foot, with oblique and lateral view of the right great toe. COMPARISON: None. FINDINGS: BONES: No acute fracture or destructive bony lesion identified. Small exostosis seen related to the distal phalanx right great toe medially. JOINTS: Degenerative cortical sclerosis seen at the interphalangeal joint of the great toe as well as the 1st metatarsophalangeal joint. Lesser similar changes seen throughout the interphalangeal joints diffusely incidentally. SOFT TISSUES: Normal. OTHER FINDINGS: None. IMPRESSION: No acute fracture dislocation right great toe. Small exostosis related to the distal phalanx right great toe as discussed above.
== END 2017-12-18 17:29 | disposition home or self-care (01) ==
LOC: C.ER 16:02
DX: S91.201A Unspecified open wound of right great toe with damage to nail, initial encounter (principal); W22.8XXA Striking against or struck by other objects, initial encounter